=== PATIENT | female | born 1935 | race Caucasian/White ===

== ENCOUNTER 2016-03-21 12:22 | Day surgery (SDC) | payer OTHER ==
[~2016-03-21] VITALS: Ht 160 cm; Wt 103.2 kg
[~2016-03-21 12:22] MED LIST: ACCOLATE20 MG PO; ACTOS45 MG PO; ADVAIR HFA120 INHALA IH; ALENDRONATE SOD70 MG PO; ALTACE10 MG PO; ARICEPT10 MG PO; Aspirin Chewable PO; CIPRO500 MG PO; DUONEB 2.5-0.5 M3 ML AEROSOL; EXELON3 MG PO; FORTAMET500 M1 PO; JANUMET XR 1001 EACH PO; KEFLEX500 MG PO; LASIX40 MG PO; LEVAQUIN500 MG PO; METFORMIN HCL500 MG PO; NAMENDA10 MG PO; NEURONTIN300 MG PO; PRILOSEC40 MG PO; SYNTHROID175 MCG PO; ZOFRAN ODT4 MG PO; Zocor PO
[2016-03-21 15:17] LABS: HEMATOCRIT 46.2 % (36.0-46.0); MCH 30.4 PG (29.0-34.0); MCHC 35.1 G/DL (30.0-36.0); MCV 86.7 FL (83-99); MEAN PLAT.VOLUME 11.3 uM^3 (9.5-12.4); PLATELET COUNT 176 K/uL (156-360); RBC DIS.WIDTH-CV 13.7 % (11.8-14.6); RBC DIS.WIDTH-SD 43.8 % (39-53); RED BLOOD COUNT 5.33 M/uL (3.80-5.20)
[2016-03-21 15:32] LABS: CHLORIDE 101 mEq/L (99-109); POTASSIUM 3.9 mEq/L (3.7-5.4)
[2016-03-21 15:33] LABS: SODIUM 138 mEq/L (136-147)
[2016-03-21 15:35] LABS: GLUCOSE 234 mg/dL (70-99)
[2016-03-21 15:36] LABS: ANION GAP 12 MEQ/L (2-14)
[2016-03-21 15:37] LABS: TOTAL BILIRUBIN 1.7 mg/dL (0.0-1.0)
[2016-03-21 15:38] LABS: ALKALINE PHOSPHATASE 81 IU/L (3-129)
[2016-03-21 15:39] LABS: GFR ESTIMATE (CALCULATED) 51 mL/min/
[2016-03-21 15:40] LABS: DIRECT BILIRUBIN 0.6 mg/dL (0.0-0.3); UREA NITROGEN (BUN) 9 mg/dL (9-23)
[2016-03-21 15:42] LABS: LIPASE 14 U/L (1.0-51.0)
[2016-03-21] MEDS ORDERED: OMEPRAZOLE40 M1 PO (15:58)
[2016-03-21] MEDS ORDERED: GLIPIZIDE XL10 MG PO (15:58)
[2016-03-21] MEDS ORDERED: TRAZODONE HCL50 MG PO (15:58)
[2016-03-21] MEDS ORDERED: LO-DOSE ASPIRIN81 M2 PO (15:58)
[2016-03-21] MEDS ORDERED: PERCOCET 5/31 TABLET PO (23:47)
[2016-03-21] MEDS ORDERED: COLACE100 MG PO (23:47)
[2016-03-22 01:15] VITALS: BP 110/60
[2016-03-22 03:46] VITALS: BP 112/59
[2016-03-22 07:00] VITALS: BP 113/56
[2016-03-22 07:05] LABS: EOSINOPHIL (%) 0 % (0-5); HEMATOCRIT 44.1 % (36.0-46.0); IMMATURE GRANULOCYTE (%) 0.2 % (0.0-0.7); MCH 30.2 PG (29.0-34.0); MCHC 33.8 G/DL (30.0-36.0); MCV 89.3 FL (83-99); MEAN PLAT.VOLUME 11.9 uM^3 (9.5-12.4); MONOCYTE (%) 2.1 % (3-12); MONOCYTE COUNT 0.4 K/uL (0-0.8); NEUTROPHIL (%) 91.6 % (45-76); NEUTROPHIL COUNT 15.6 K/uL (1.8-6.4); PLATELET COUNT 155 K/uL (156-360); RBC DIS.WIDTH-SD 45.7 % (39-53); RED BLOOD COUNT 4.94 M/uL (3.80-5.20)
[2016-03-22 07:30] LABS: HDL CHOLESTEROL 49 MG/DL (Desirable>=50); LDL CHOLESTEROL 68 mg/dL (Desirable<100); NON-HDL CHOLESTEROL 81 mg/dL (Desirable<160); TOTAL CHOLESTEROL 130 mg/dL (Desirable<200); TRIGLYCERIDES 66 MG/DL (Normal: <150)
[2016-03-22 11:07] VITALS: BP 116/66
[2016-03-22 18:37] LABS: Estimated Average Glucose 151 mg/dL (70-123); HEMOGLOBIN A1c (GLYCOHEMOGLOB) 6.9 % HGB (Below 5.7)
== END 2016-03-22 12:10 | disposition home or self-care (01) ==
LOC: EME 12:22 → SDC 21:53 → EME 21:53 → 2SOUTH 23:31 → 2EASTP 23:31 → 2SOUTH 23:31 → 2EASTP 03-22 01:13
PROVIDERS: Emergency Medicine; Family Medicine; Surgery
PROC: 0DTJ4ZZ Resection of Appendix, Percutaneous Endoscopic Approach (ICD-10-PCS; principal; 2016-03-21)
DX: K35.80 Unspecified acute appendicitis (principal); F03.90 Unspecified dementia, unspecified severity, without behavioral disturbance, psychotic disturbance, mood disturbance, and anxiety; K21.9 Gastro-esophageal reflux disease without esophagitis; I10 Essential (primary) hypertension; J44.9 Chronic obstructive pulmonary disease, unspecified; Z87.891 Personal history of nicotine dependence; E11.9 Type 2 diabetes mellitus without complications; E03.9 Hypothyroidism, unspecified
CPT/HCPCS: 71010; 74176; 80048; 80061; 80076; 81003; 82948; 83036; 83690; 84439; 84443; 85025; 85027; 88304; 93005; 99281; 99285; G0378; J0330; J1100; J1170; J1815; J2270; J2405; J2543; J2710; J3010; J7030

== ENCOUNTER 2016-07-21 09:15 | Emergency (ER) | payer OTHER ==
[~2016-07-21] VITALS: Ht 162.6 cm; Wt 93.7 kg
[~2016-07-21 09:15] MED LIST changes: +COLACE100 MG PO; +GLIPIZIDE XL10 MG PO; +LO-DOSE ASPIRIN81 M2 PO; +OMEPRAZOLE40 M1 PO; +PERCOCET 5/31 TABLET PO; +TRAZODONE HCL50 MG PO
[2016-07-21] MEDS ORDERED: JANUVIA100 MG PO (09:38)
[2016-07-21] MEDS ORDERED: AMITIZA24 MICROGR PO (09:39)
[2016-07-21] MEDS ORDERED: PROAIR HFA8.5 GM IH (09:39)
[2016-07-21 10:06] LABS: HEMATOCRIT 46.8 % (36.0-46.0); MCH 29.6 PG (29.0-34.0); MCHC 33.8 G/DL (30.0-36.0); MCV 87.6 FL (83-99); MEAN PLAT.VOLUME 10.5 uM^3 (9.5-12.4); PLATELET COUNT 213 K/uL (156-360); RBC DIS.WIDTH-CV 13.1 % (11.8-14.6); RBC DIS.WIDTH-SD 41.9 % (39-53); RED BLOOD COUNT 5.34 M/uL (3.80-5.20); WHITE BLOOD COUNT 8.8 K/uL (4.1-10.2)
[2016-07-21 10:24] LABS: CHLORIDE 108 mEq/L (99-109); SODIUM 140 mEq/L (136-147)
[2016-07-21 10:25] LABS: GLUCOSE 261 mg/dL (70-99)
[2016-07-21 10:27] LABS: ANION GAP 10 MEQ/L (2-14)
[2016-07-21 10:29] LABS: GFR ESTIMATE (CALCULATED) 51 mL/min/
[2016-07-21 10:30] LABS: UREA NITROGEN (BUN) 9 mg/dL (9-23)
[2016-07-21 11:12] LABS: ADD MIUA? NO; BILIRUBIN NEGATIVE; BLOOD NEGATIVE; COLOR YELLOW ((YELLOW)); GLUCOSE (STRIP) >=500; KETONES 5; LEUKOCYTES NEGATIVE; NITRITE NEGATIVE; PROTEIN (STRIP) NEGATIVE; SPECIFIC GRAVITY 1.018 (1.000-1.030); UROBILINOGEN 0.2 MG/DL (0.2-1.0)
[2016-07-21 11:31] VITALS: BP 137/82
== END 2016-07-21 11:32 | disposition home or self-care (01) ==
LOC: EME 09:15
PROVIDERS: Emergency Medicine
DX: F03.90 Unspecified dementia, unspecified severity, without behavioral disturbance, psychotic disturbance, mood disturbance, and anxiety (principal); I11.0 Hypertensive heart disease with heart failure; I50.9 Heart failure, unspecified; E11.9 Type 2 diabetes mellitus without complications; J44.9 Chronic obstructive pulmonary disease, unspecified; E78.5 Hyperlipidemia, unspecified; K21.9 Gastro-esophageal reflux disease without esophagitis; E03.9 Hypothyroidism, unspecified; Z79.82 Long term (current) use of aspirin; Z87.891 Personal history of nicotine dependence
CPT/HCPCS: 71020; 80048; 81003; 85027; 87086; 99281; 99285

== ENCOUNTER 2016-10-15 15:03 | Emergency (ER) | payer OTHER ==
[~2016-10-15] VITALS: Ht 167.6 cm; Wt 105.4 kg
[~2016-10-15 15:03] MED LIST changes: +AMITIZA24 MICROGR PO; +JANUVIA100 MG PO; +PROAIR HFA8.5 GM IH
[2016-10-15 15:54] LABS: EOSINOPHIL (%) 1.4 % (0-5); EOSINOPHIL COUNT 0.1 K/uL (0-0.3); IMMATURE GRANULOCYTE (%) 0.3 % (0.0-0.7); INSTRUMENT ABS NEUTROPHIL CT 6.3 K/uL; LYMPHOCYTE COUNT 2.6 K/uL (1.0-2.8); MCH 29.4 PG (29.0-34.0); MCHC 33.3 G/DL (30.0-36.0); MCV 88.5 FL (83-99); MONOCYTE (%) 5.6 % (3-12); MONOCYTE COUNT 0.5 K/uL (0-0.8); NEUTROPHIL (%) 65.5 % (45-76); NEUTROPHIL COUNT 6.3 K/uL (1.8-6.4); PLATELET COUNT 205 K/uL (156-360); RBC DIS.WIDTH-SD 42.5 % (39-53); WHITE BLOOD COUNT 9.7 K/uL (4.1-10.2)
[2016-10-15 16:05] LABS: CHLORIDE 104 mEq/L (99-109); POTASSIUM 4.2 mEq/L (3.7-5.4); SODIUM 140 mEq/L (136-147)
[2016-10-15 16:07] LABS: GLUCOSE 323 mg/dL (70-99)
[2016-10-15 16:08] LABS: ANION GAP 10 MEQ/L (2-14)
[2016-10-15 16:11] LABS: GFR ESTIMATE (CALCULATED) 46 mL/min/
[2016-10-15 16:12] LABS: UREA NITROGEN (BUN) 12 mg/dL (9-23)
[2016-10-15 16:23] LABS: ADD MIUA? YES; BILIRUBIN NEGATIVE; BLOOD NEGATIVE; COLOR YELLOW ((YELLOW)); GLUCOSE (STRIP) >=500; KETONES NEGATIVE; LEUKOCYTES TRACE; NITRITE NEGATIVE; PROTEIN (STRIP) NEGATIVE; SPECIFIC GRAVITY 1.023 (1.000-1.030); UROBILINOGEN 0.2 MG/DL (0.2-1.0)
[2016-10-15 16:28] LABS: BACTERIA RARE /HPF; EPITHELIAL CELLS RARE /HPF; MUCUS TRACE /LPF; RED BLOOD CELLS 0-5 /HPF (0-5); WHITE BLOOD CELLS 0-5 /HPF (0-5)
[2016-10-15 17:36] VITALS: BP 86/60
== END 2016-10-15 17:37 | disposition home or self-care (01) ==
LOC: RME 15:03 → EME 15:03 → RME 17:37
PROVIDERS: Physician Assistant
DX: E11.65 Type 2 diabetes mellitus with hyperglycemia (principal); Z79.84 Long term (current) use of oral hypoglycemic drugs; R35.8 Other polyuria; R32 Unspecified urinary incontinence; F03.90 Unspecified dementia, unspecified severity, without behavioral disturbance, psychotic disturbance, mood disturbance, and anxiety; I10 Essential (primary) hypertension; E03.9 Hypothyroidism, unspecified; J44.9 Chronic obstructive pulmonary disease, unspecified; Z87.891 Personal history of nicotine dependence; Z79.82 Long term (current) use of aspirin
CPT/HCPCS: 80048; 81003; 85025; 99281; 99283

== ENCOUNTER 2016-11-29 07:07 | Emergency (ER) | payer OTHER ==
[~2016-11-29] VITALS: Ht 172.7 cm; Wt 94.3 kg
[2016-11-29 08:03] LABS: EOSINOPHIL (%) 2.8 % (0-5); EOSINOPHIL COUNT 0.3 K/uL (0-0.3); HEMATOCRIT 45.5 % (36.0-46.0); IMMATURE GRANULOCYTE (%) 0.3 % (0.0-0.7); INSTRUMENT ABS NEUTROPHIL CT 6.3 K/uL; LYMPHOCYTE COUNT 2.2 K/uL (1.0-2.8); MCHC 33.8 G/DL (30.0-36.0); MCV 88.7 FL (83-99); MEAN PLAT.VOLUME 10.6 uM^3 (9.5-12.4); MONOCYTE (%) 6.1 % (3-12); MONOCYTE COUNT 0.6 K/uL (0-0.8); NEUTROPHIL (%) 66.9 % (45-76); NEUTROPHIL COUNT 6.3 K/uL (1.8-6.4); PLATELET COUNT 192 K/uL (156-360); RBC DIS.WIDTH-CV 12.7 % (11.8-14.6); RBC DIS.WIDTH-SD 41.8 % (39-53); RED BLOOD COUNT 5.13 M/uL (3.80-5.20); WHITE BLOOD COUNT 9.4 K/uL (4.1-10.2)
[2016-11-29 08:06] LABS: POINT-OF-CARE METER ID UU13113702
[2016-11-29 08:33] LABS: TROP-I INTERPRETATION NEGATIVE; TROPONIN-I < 0.01 ng/mL (0.0-0.30)
[2016-11-29 08:36] LABS: CHLORIDE 107 mEq/L (99-109); POTASSIUM 3.9 mEq/L (3.7-5.4); SODIUM 138 mEq/L (136-147)
[2016-11-29 08:38] LABS: GLUCOSE 333 mg/dL (70-99)
[2016-11-29 08:40] LABS: ANION GAP 12 MEQ/L (2-14); TOTAL BILIRUBIN 0.7 mg/dL (0.0-1.0)
[2016-11-29 08:42] LABS: ALKALINE PHOSPHATASE 80 IU/L (3-129); GFR ESTIMATE (CALCULATED) 57 mL/min/
[2016-11-29 08:43] LABS: UREA NITROGEN (BUN) 8 mg/dL (9-23)
[2016-11-29 08:44] LABS: DIRECT BILIRUBIN 0.2 mg/dL (0.0-0.3)
[2016-11-29 08:45] LABS: LIPASE 29 U/L (1.0-51.0)
[2016-11-29 13:39] VITALS: BP 141/80
== END 2016-11-29 13:41 | disposition home or self-care (01) ==
LOC: EME 07:07
PROVIDERS: Emergency Medicine
DX: R10.9 Unspecified abdominal pain (principal); I10 Essential (primary) hypertension; K21.9 Gastro-esophageal reflux disease without esophagitis; J44.9 Chronic obstructive pulmonary disease, unspecified; F03.90 Unspecified dementia, unspecified severity, without behavioral disturbance, psychotic disturbance, mood disturbance, and anxiety; E78.5 Hyperlipidemia, unspecified; E11.9 Type 2 diabetes mellitus without complications; E03.9 Hypothyroidism, unspecified; Z87.891 Personal history of nicotine dependence; Z79.82 Long term (current) use of aspirin; Z90.49 Acquired absence of other specified parts of digestive tract
CPT/HCPCS: 74177; 80048; 80076; 82140; 82948; 83690; 84484; 85025; 99281; 99284; J7040

== ENCOUNTER 2017-08-06 22:09 | Inpatient (IN) | payer OTHER ==
[~2017-08-06] VITALS: Ht 167.6 cm; Wt 82.5 kg
[2017-08-06 23:15] LABS: HEMATOCRIT 45.4 % (36.0-46.0); HEMOGLOBIN 15.7 G/DL (11.9-15.5); MCH 30.6 PG (29.0-34.0); MCHC 34.6 G/DL (30.0-36.0); MCV 88.5 FL (83-99); PLATELET COUNT 224 K/uL (156-360); RBC DIS.WIDTH-CV 13.1 % (11.8-14.6); RBC DIS.WIDTH-SD 42.6 % (39-53); RED BLOOD COUNT 5.13 M/uL (3.80-5.20); WHITE BLOOD COUNT 11.7 K/uL (4.1-10.2)
[2017-08-06 23:32] LABS: CHLORIDE 104 mEq/L (99-109); POTASSIUM 3.5 mEq/L (3.7-5.4); SODIUM 140 mEq/L (136-147)
[2017-08-06 23:34] LABS: GLUCOSE 151 mg/dL (70-99)
[2017-08-06 23:38] LABS: CREATININE 1.1 mg/dL (0.6-1.3); GFR ESTIMATE (CALCULATED) 51 mL/min/; UREA NITROGEN (BUN) 11 mg/dL (9-23)
[2017-08-07 01:10] LABS: APPEARANCE SL.HAZY ((CLEAR)); BILIRUBIN NEGATIVE; BLOOD NEGATIVE; COLOR AMBER ((YELLOW)); GLUCOSE (STRIP) 50; KETONES 20; LEUKOCYTES MODERATE; NITRITE NEGATIVE; PROTEIN (STRIP) 100; SPECIFIC GRAVITY 1.029 (1.000-1.030)
[2017-08-07 01:19] LABS: BACTERIA RARE /HPF; EPITHELIAL CELLS 1+ /HPF; MUCUS 2+ /LPF; UCUL ADDED? YES; WHITE BLOOD CELLS 20-30 /HPF (0-5)
[2017-08-07] MEDS ORDERED: JANUVIA100 MG PO (01:46)
[2017-08-07] MEDS ORDERED: LASIX40 MG PO (01:46)
[2017-08-07] MEDS ORDERED: ALTACE10 MG PO (01:46)
[2017-08-07] MEDS ORDERED: TRAZODONE HCL50 MG PO (01:47)
[2017-08-07] MEDS ORDERED: OMEPRAZOLE40 M1 PO (01:47)
[2017-08-07] MEDS ORDERED: ASPIRIN81 M2 PO (01:48)
[2017-08-07] MEDS ORDERED: PERCOCET 5/31 TABLET PO (01:48)
[2017-08-07] MEDS ORDERED: COLACE100 MG PO (01:48)
[2017-08-07 07:50] VITALS: BP 133/64
[2017-08-07 13:52] LABS: ALBUMIN 3.8 G/DL (3.2-4.8); ALKALINE PHOSPHATASE 72 IU/L (3-129); ALT (GPT) 11 IU/L (3-49); AST (GOT) 24 IU/L (2-34); CHLORIDE 104 MEQ/L (99-109); CREATININE 0.8 MG/DL (0.6-1.3); GFR ESTIMATE (CALCULATED) > 59 mL/min/; GLUCOSE 200 mg/dL (70-99); HDL CHOLESTEROL 39 MG/DL (Desirable>=50); LDL CHOLESTEROL 93 mg/dL (Desirable<100); NON-HDL CHOLESTEROL 112 mg/dL (Desirable<160); POTASSIUM 3.6 MEQ/L (3.7-5.4); SODIUM 141 MEQ/L (136-147); TOTAL BILIRUBIN 1.3 MG/DL (0.0-1.0); TOTAL CHOLESTEROL 151 mg/dL (Desirable<200); TOTAL PROTEIN 6.3 G/DL (6.4-8.3); TRIGLYCERIDES 96 MG/DL (Normal: <150); UREA NITROGEN (BUN) 10 mg/dL (9-23)
[2017-08-07 14:05] LABS: THYROTROPIN (TSH) 11.8 MIU/L (0.4-5.5)
[2017-08-07] MEDS ORDERED: SYNTHROID175 MCG PO (16:04)
[2017-08-07 16:48] VITALS: BP 125/62
[2017-08-07 23:48] VITALS: BP 158/71
[2017-08-08 10:19] LABS: HEMOGLOBIN A1c (GLYCOHEMOGLOB) 7.9 % (Below 5.7)
[2017-08-08] MEDS ORDERED: PROAIR HFA8.5 GM IH (10:32)
[2017-08-08 16:15] VITALS: BP 106/48
[2017-08-08 23:20] VITALS: BP 133/98
[2017-08-09 07:08] LABS: CHLORIDE 109 MEQ/L (99-109); CREATININE 1.2 MG/DL (0.6-1.3); GFR ESTIMATE (CALCULATED) 46 mL/min/; GLUCOSE 139 mg/dL (70-99); POTASSIUM 3.6 MEQ/L (3.7-5.4); SODIUM 143 MEQ/L (136-147); UREA NITROGEN (BUN) 16 mg/dL (9-23)
[2017-08-09 08:18] VITALS: BP 118/56
[2017-08-09 15:00] VITALS: BP 134/60
[2017-08-09] MEDS ORDERED: DUONEB 2.5-0.5 M3 ML AEROSOL (22:32)
[2017-08-09] MEDS ORDERED: LORAZEPAM0.5 MG PO (22:34)
[2017-08-09] MEDS ORDERED: HYDROCODON-ACE1 EAC7 PO (22:34)
[2017-08-10 01:08] VITALS: BP 118/49
[2017-08-10 07:02] LABS: CHLORIDE 104 MEQ/L (99-109); GFR ESTIMATE (CALCULATED) 57 mL/min/; GLUCOSE 153 mg/dL (70-99); POTASSIUM 3.6 MEQ/L (3.7-5.4); SODIUM 140 MEQ/L (136-147); UREA NITROGEN (BUN) 14 mg/dL (9-23)
[2017-08-10 08:02] VITALS: BP 145/72
[2017-08-10 16:48] VITALS: BP 159/65
[2017-08-11 00:57] VITALS: BP 143/67
[2017-08-11 08:17] VITALS: BP 157/69
[2017-08-11 16:35] VITALS: BP 130/70
[2017-08-12 00:05] VITALS: BP 134/69
[2017-08-12 08:05] VITALS: BP 163/68
[2017-08-12 15:10] VITALS: BP 118/56
[2017-08-12 22:44] VITALS: BP 144/67
[2017-08-13 07:15] VITALS: BP 120/87
[2017-08-13 07:16] LABS: CHLORIDE 105 MEQ/L (99-109); GFR ESTIMATE (CALCULATED) 57 mL/min/; GLUCOSE 175 mg/dL (70-99); SODIUM 141 MEQ/L (136-147); UREA NITROGEN (BUN) 13 mg/dL (9-23)
[2017-08-13 22:48] VITALS: BP 122/60
[2017-08-14 07:29] VITALS: BP 124/58
[2017-08-14 15:30] VITALS: BP 138/74
[2017-08-15 01:01] VITALS: BP 122/63
[2017-08-15 06:03] VITALS: BP 120/57
[2017-08-15 07:25] VITALS: BP 142/68
[2017-08-15 15:25] VITALS: BP 133/76
[2017-08-15 22:42] VITALS: BP 146/63
[2017-08-16 07:38] VITALS: BP 114/60
[2017-08-16 15:31] VITALS: BP 119/74
[2017-08-16 23:15] VITALS: BP 123/77
[2017-08-17 07:28] VITALS: BP 134/58
[2017-08-17 16:31] VITALS: BP 134/60
[2017-08-18 00:32] VITALS: BP 122/59
[2017-08-18 10:00] VITALS: BP 118/62
[2017-08-18 15:40] VITALS: BP 121/58
[2017-08-19] VITALS: BP 120/74
[2017-08-19 07:29] VITALS: BP 119/57
[2017-08-19 16:04] VITALS: BP 130/65
[2017-08-19 23:12] VITALS: BP 165/81
[2017-08-20 07:15] VITALS: BP 127/65
[2017-08-20 15:25] VITALS: BP 118/74
[2017-08-20 23:01] VITALS: BP 129/62
[2017-08-21 06:44] VITALS: BP 105/45
[2017-08-21 15:27] VITALS: BP 100/68
[2017-08-22 00:12] VITALS: BP 124/57
[2017-08-22 07:05] VITALS: BP 130/72
[2017-08-22 15:19] VITALS: BP 115/58
[2017-08-23 00:15] VITALS: BP 146/60
[2017-08-23 01:56] VITALS: BP 127/74
[2017-08-23 07:20] VITALS: BP 118/56
[2017-08-23 15:40] VITALS: BP 128/66
[2017-08-23 22:59] VITALS: BP 120/81
[2017-08-24 06:45] VITALS: BP 107/59
[2017-08-24 15:30] VITALS: BP 127/56
[2017-08-25 01:18] VITALS: BP 118/78
[2017-08-25 07:25] VITALS: BP 109/57
[2017-08-25 16:11] VITALS: BP 146/65
[2017-08-25 22:48] VITALS: BP 123/62
[2017-08-26 07:19] VITALS: BP 113/62
[2017-08-26 15:30] VITALS: BP 125/59
[2017-08-26 23:21] VITALS: BP 158/90
[2017-08-27 07:00] VITALS: BP 161/67
[2017-08-27 15:00] VITALS: BP 124/76
[2017-08-27 23:16] VITALS: BP 128/66
[2017-08-28 08:18] VITALS: BP 125/65
[2017-08-28 15:45] VITALS: BP 126/72
[2017-08-28 23:19] VITALS: BP 117/55
[2017-08-29 07:25] VITALS: BP 147/88
[2017-08-29 15:50] VITALS: BP 121/57
[2017-08-29 23:16] VITALS: BP 137/60
[2017-08-30 06:51] VITALS: BP 117/59
[2017-08-30 15:41] VITALS: BP 115/57
[2017-08-30 23:19] VITALS: BP 124/70
[2017-08-31 09:15] VITALS: BP 154/65
[2017-08-31 16:45] VITALS: BP 138/72
[2017-09-01 00:33] VITALS: BP 109/53
[2017-09-01 07:35] VITALS: BP 113/56
[2017-09-01 15:40] VITALS: BP 117/74
[2017-09-02 00:12] VITALS: BP 126/58
[2017-09-02 07:30] VITALS: BP 125/58
[2017-09-02 15:00] VITALS: BP 172/67
[2017-09-02 23:49] VITALS: BP 127/59
[2017-09-03 07:24] VITALS: BP 117/62
[2017-09-03 16:27] VITALS: BP 120/69
[2017-09-03 22:48] VITALS: BP 141/60
[2017-09-04 07:05] VITALS: BP 139/71
[2017-09-04 15:30] VITALS: BP 106/56
[2017-09-05 07:23] VITALS: BP 121/88
[2017-09-05 16:50] VITALS: BP 129/74
[2017-09-06 00:57] VITALS: BP 128/58
[2017-09-06 07:43] VITALS: BP 123/65
[2017-09-06 15:26] VITALS: BP 106/53
[2017-09-07 00:36] VITALS: BP 122/58
[2017-09-07 07:27] VITALS: BP 131/68
[2017-09-07 16:55] VITALS: BP 108/54
[2017-09-07 23:18] VITALS: BP 110/53
[2017-09-08 07:30] VITALS: BP 155/61
[2017-09-08] MEDS ORDERED: HALDOL5 MG PO (15:34)
[2017-09-08] MEDS ORDERED: METFORMIN HCL500 MG PO (15:34)
[2017-09-08] MEDS ORDERED: LEVOTHYROXINE100 MCG PO (15:35)
[2017-09-08] MEDS ORDERED: DOCU LIQUI50 MG/5 ML PO (15:37)
[2017-09-08 15:45] VITALS: BP 114/56
== END 2017-09-08 18:04 | DRG 57 ==
LOC: EME → DELPENDDIS → EME 22:09 → EDBD 22:09 → EDOF 08-07 02:05 → 5EAST 08-07 02:05 → ENRESERV 08-07 02:07 → 5EAST 08-07 04:10 → EDPENDDISTM 08-10 → ENPENDDIS 08-10 → EDPENDDISDT 08-10 → 5EAST 09-08 18:04
PROVIDERS: Emergency Medicine; Family Medicine
DX: G30.1 Alzheimer's disease with late onset (principal); F02.80 Dementia in other diseases classified elsewhere, unspecified severity, without behavioral disturbance, psychotic disturbance, mood disturbance, and anxiety; N39.0 Urinary tract infection, site not specified; E11.65 Type 2 diabetes mellitus with hyperglycemia; T38.3X6A Underdosing of insulin and oral hypoglycemic [antidiabetic] drugs, initial encounter; Z91.120 Patient's intentional underdosing of medication regimen due to financial hardship; E03.9 Hypothyroidism, unspecified; I10 Essential (primary) hypertension; J44.9 Chronic obstructive pulmonary disease, unspecified; E87.6 Hypokalemia; E78.5 Hyperlipidemia, unspecified; K21.9 Gastro-esophageal reflux disease without esophagitis; Z66 Do not resuscitate; Z51.5 Encounter for palliative care; G47.00 Insomnia, unspecified; G25.81 Restless legs syndrome; M81.0 Age-related osteoporosis without current pathological fracture; R32 Unspecified urinary incontinence; E66.9 Obesity, unspecified; Z68.35 Body mass index [BMI] 35.0-35.9, adult; F32.9 Major depressive disorder, single episode, unspecified; Z75.1 Person awaiting admission to adequate facility elsewhere; Z91.14 Patient's other noncompliance with medication regimen; Z87.891 Personal history of nicotine dependence; Z96.653 Presence of artificial knee joint, bilateral; Z79.84 Long term (current) use of oral hypoglycemic drugs; Z79.82 Long term (current) use of aspirin; Z91.81 History of falling
CPT/HCPCS: 70450; 71046; 80048; 80053; 80061; 81003; 82948; 83036; 84439; 84443; 85027; 87086; 97530 GO; 97530 GP; 99202; 99281; 99284; J0744; J1630; J1815; J2405